=== PATIENT | female | born 1995 | race Caucasian/White ===

== ENCOUNTER 2021-08-19 05:57 | Inpatient (IN) ==
[2021-08-19] MEDS ORDERED: *HR* Nalbuphine 10 MG/ML AMPUL IV PRN (06:06)
[2021-08-19] MEDS ORDERED: Metoclopramide 10 MG/2 ML VIAL IVP PRN (06:06)
[2021-08-19] MEDS ORDERED: Naloxone 0.4 MG/ML INJ IVP PRN (06:06)
[2021-08-19] MEDS ORDERED: Azithromycin 500 MG in 0.9 % Sodium Chloride 250 ML IVPB PRN (06:06)
[2021-08-19] MEDS ORDERED: Famotidine 20 MG/2 ML VIAL IVP PRN (06:06)
[2021-08-19] MEDS ORDERED: Ondansetron 4 MG/2 ML VIAL IVP PRN (06:06)
[2021-08-19] MEDS ORDERED: Lidocaine 1% 20 ML MDV INFILT PRN (06:06)
[2021-08-19] MEDS ORDERED: miSOPROStoL 25 MCG TABLET PO PRN (06:10)
[2021-08-19] MEDS ORDERED: EPHEDrine 50 MG/ML VIAL IVP PRN (06:18)
[2021-08-19] MEDS ORDERED: Epidural Premix (fent/bupiv) 110 ML EP SCH (06:30)
[2021-08-19] MEDS ORDERED: *HR* Labetalol 20 MG/4 ML SYRINGE IVP ONE (06:41)
[2021-08-19 06:50] LABS: Basophils # 0.1 K/mcL (0.0-0.2); Basophils % 0.4 %; Eosinophils # 0.2 K/mcL (0.0-0.6); Eosinophils % 1.2 %; Hematocrit 41.3 % (35.3-44.9); Hemoglobin 13.6 g/dL (11.5-15.4); Immature Granulocytes % 0.4 % (0-4); Lymphocytes # 3.5 K/mcL (0.6-4.6); Lymphocytes % 21.2 %; Mean Corpuscular HGB Conc 32.9 g/dL (31.6-35.5); Mean Corpuscular Hemoglobin 31.3 pg (28.0-33.3); Mean Corpuscular Volume 94.9 fL (83.0-100.0); Mean Platelet Volume 11.5 fL (9.4-12.4); Monocytes # 0.7 K/mcL (0.0-1.3); Platelet Count 297 K/mcL (140-400); Red Blood Count 4.35 M/mcL (3.82-4.97); Red Cell Distribution Width 13.2 % (11.5-14.5); Segmented Neutrophils % 72.8 %; White Blood Count 16.4 K/mcL (4.3-11.1)
[2021-08-19 07:27] LABS: Influenza A PCR Negative (Negative); Influenza B PCR Negative (Negative); Resp. Syncytial Virus PCR Negative (Negative); SARS-CoV-2 by PCR (In House) Negative (Negative)
[2021-08-19 09:05] LABS: Alanine Aminotransferase 7 Units/L (7-52); Aspartate Amino Transferase 13 Units/L (13-39); BUN/Creatinine Ratio 11 (6-26); Blood Urea Nitrogen 7 mg/dL (6-20); Lactate Dehydrogenase 211 Units/L (140-271); Uric Acid 6.1 mg/dL (2.3-7.6); eGFR For African Americans > 60 (> 60); eGFR For Non-African Americans > 60 (> 60)
[2021-08-19 09:54] LABS: Amphetamine Screen,Urine Negative ng/mL (Cutoff=1000); Barbiturate Screen,Urine Negative ng/mL (Cutoff=200); Benzodiazepines Screen,Urine Negative ng/mL (Cutoff=200); Cannabinoid Screen,Urine Negative ng/mL (Cutoff = 50); Cocaine Screen,Urine Negative ng/mL (Cutoff= 300); Creatinine,Urine 79 mg/dL; Opiate Screen,Urine Negative ng/mL (Cutoff=300); Phencyclidine Screen,Urine Negative ng/mL (Cutoff=25); Protein/Creatinine Ratio,Urine 0.17 mg/mg (0.00-0.20)
[2021-08-19] MEDS: Ringers Solution, Lactated 1,000 ML IVC SCH ×2 (09:55→14:13)
[2021-08-19 10:04] LABS: Bacteria,Urine Few per hpf (None-Few); Bilirubin,Urine Negative (Negative); Blood,Urine Negative (Negative); Clarity,Urine Clear (Clear); Color,Urine Colorless (Yellow); Glucose,Urine (UA) Normal (Normal); Ketones,Urine Negative (Negative); Leukocyte Esterase,Urine Small (Negative); Nitrite,Urine Negative (Negative); PH,Urine 6.5 pH Units (5.0-8.0); Protein,Urine Negative (Neg-Trace); RBC,Urine 0-3 per hpf (0-3); Specific Gravity,Urine 1.006 (1.010-1.025); Squamous Epithelial Cell,Urine Few per hpf (None-Few); Urobilinogen,Urine Normal (Normal); WBC,Urine 0-3 per hpf (0-3)
[2021-08-19] MEDS ORDERED: Oxytocin 30 UNIT/503 ML BAG IVC SCH ×2 (11:30→19:45)
[2021-08-19] MEDS ORDERED: Ibuprofen 600 MG TABLET PO ONE (16:51)
[2021-08-19] MEDS ORDERED: Lanolin 7 G OINT...G. TP PRN (19:45)
[2021-08-19] MEDS ORDERED: Benzocaine/Menthol 56 GM AEROSOL SPRAY TP PRN (19:45)
[2021-08-19] MEDS ORDERED: *HR* OxyCODONE Immed Rel 5 MG TABLET PO PRN (19:45)
[2021-08-19] MEDS ORDERED: Ondansetron ODT 4 MG TAB.RAPDIS SL PRN (19:45)
[2021-08-19] MEDS ORDERED: Oxytocin 30 UNIT/503 ML BAG IVC ONE (19:47)
[2021-08-20] MEDS: Acetaminophen 325 MG TABLET PO SCH ×2 (01:01→08:32)
[2021-08-20] MEDS: Ibuprofen 600 MG TABLET PO SCH ×2 (01:01→04:01)
[2021-08-20 04:27] VITALS: O2SAT 97
[2021-08-20 07:57] VITALS: BP 114/75; PULSE 86; TEMP 98.2
[2021-08-20] MEDS ORDERED: Prenatal Vit/FA 1 EACH TABLET PO SCH (09:00)
== END 2021-08-20 12:39 | disposition home or self-care (01) | DRG 560 ==
LOC: 1NENULAB 05:57 → 1NENUOBS 19:31
PROVIDERS: ADMIT Advanced Practice Midwife; ATTEND Advanced Practice Midwife